=== PATIENT | male | born 1990 | race African-American/Black ===

== ENCOUNTER 2016-12-24 01:37 | Emergency (ER) | payer OTHER ==
[~2016-12-24] VITALS: Ht 177.8 cm; Wt 86.5 kg
[2016-12-24 01:44] VITALS: TEMP 36.6; Ht 177.8 cm; Wt 86.5 kg
[2016-12-24] MEDS ORDERED: ONDANSETRON 8 MG/54 ML D5W IV STA (01:51)
[2016-12-24] MEDS ORDERED: SODIUM CHLORIDE 0.9% 1000ML 1,000 ML IV STA (01:51)
[2016-12-24 02:09] LABS: BASO % 0.4 %; BASO ABS # 0.05 K/uL (0-0.2); COMPLETE YES; EOS % 1.6 %; HEMATOCRIT 40.9 % (42-52); IG% 0.3 %; LYMPH % 33.7 %; LYMPH ABS # 3.86 K/uL (1.2-3.4); MEAN CELL VOLUME 79.3 fL (80-100); MEAN CORPUSCULAR HEMOGLOBIN 27.5 pg (25-34); MEAN CORPUSCULAR HGB CONC 34.7 g/dl (32-36); MEAN PLATELET VOLUME 10.5 fL (7.4-10.4); MONO % 13.2 %; NEUT % 50.8 %; PLATELET COUNT 229 K/uL (130-400); RED BLOOD COUNT 5.16 M/uL (4.7-6.1); WHITE BLOOD COUNT 11.46 K/uL (4.8-10.8)
[2016-12-24 02:13] LABS: BUN/CREATININE RATIO 10.6 (10-20); CALCIUM 8.4 mg/dl (8.5-10.1); CREATININE 1.12 mg/dl (0.60-1.40); POTASSIUM 3.3 mmol/L (3.5-5.1)
[2016-12-24 02:15] LABS: ALB/GLOB RATIO 1.3 (0.9-2)
[2016-12-24] MEDS ORDERED: LIDO/EPINEPHRINE/SOD BICARB 20 ML VIAL INFIL ONE (05:19)
[2016-12-24 07:03] LABS: BENZODIAZEPINE, URINE NEG (NEG); COCAINE,URINE NEG (NEG); PHENCYCLIDINE, URINE NEG (NEG)
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
[2016-12-24] MEDS ORDERED: DIPHTHERIA/TETANUS/PERTUSSIS 0.5 ML SYR/VIAL IM. ONE (07:15)
[2016-12-24 07:23] VITALS: BP 134/89; PULSE 90; O2SAT 98
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
== END 2016-12-24 07:24 | disposition home or self-care (01) ==
LOC: EDBD 01:37 → C.EDB 01:43 → EDBD 01:43 → C.EDB 07:24
DX: S01.81XA Laceration without foreign body of other part of head, initial encounter (principal); S09.90XA Unspecified injury of head, initial encounter; F10.920 Alcohol use, unspecified with intoxication, uncomplicated; W19.XXXA Unspecified fall, initial encounter; Y92.89 Other specified places as the place of occurrence of the external cause